=== PATIENT | female | born 1985 | race American Indian/Alaskan Native ===

== ENCOUNTER 2022-03-14 09:32 | Emergency (ER) | payer OTHER, MEDICAID ==
[2022-03-14] MEDS ORDERED: ONDANSETRON 4 MG/2 ML INJ IV ONE (11:11)
[2022-03-14] MEDS ORDERED: KETOROLAC 30 MG/1 ML INJ IV ONE (11:11)
[2022-03-14] MEDS ORDERED: MORPHINE 4 MG/1 ML INJ IV ONE (11:11)
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
[2022-03-14] MEDS ORDERED: HYDROmorphone 1 MG/1 ML INJ IV ONE (12:24)
[2022-03-14 13:06] VITALS: BP 124/70
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
== END 2022-03-14 13:48 | disposition home or self-care (01) ==
LOC: ED 09:32
DX: S16.1XXA Strain of muscle, fascia and tendon at neck level, initial encounter (principal); S39.012A Strain of muscle, fascia and tendon of lower back, initial encounter; V89.2XXA Person injured in unspecified motor-vehicle accident, traffic, initial encounter; J45.909 Unspecified asthma, uncomplicated; Y93.89 Activity, other specified; Y92.89 Other specified places as the place of occurrence of the external cause; Y99.8 Other external cause status
CPT/HCPCS: 72125; 72131; 96374; 96375; 99284; J1170; J1885; J2270; J2405